=== PATIENT | male | born 1950 | race Caucasian/White ===

== ENCOUNTER 2023-12-24 18:23 | Emergency (ER) | payer MEDICARE, OTHER, SELFPAY ==
[2023-12-24 18:26] VITALS: BP 128/67
--- NOTE | 2023-12-24 20:58 | ED.GENMED ---
History of Present Illness
General
Chief Complaint: Musculo-Skeletal Complaint
Time Seen by Provider: 12/24/23 20:57
Travel History
Have you had any contact with someone who has COVID-19?: No
Do you have any symptoms of coronavirus? Fever > 100 degrees, chills, cough, shortness of breath, sore throat, loss of taste or smell, muscle aches, or headache?: No
History of Present Illness
History of Present Illness:
HPI: Patient presents with swelling and redness to the right knee that worsens when he kneels on it. He noted some increased swelling and was concerned. He also states his noticed some warmth. He is not a diabetic
EXAM:
GENERAL: Well appearing in no distress
HEENT: Moist oral mucosa
PSYCHIATRIC: Appropriate mental status, normal insight and judgement
EXTREMITIES: There is some very mild prepatellar soft tissue swelling consistent with prepatellar bursitis with mild warmth but no overwhelming signs of cellulitis
SKIN: As above
TIME OF INITIAL ENCOUNTER: 9 PM
NUMBER AND COMPLEXITY OF PROBLEMS ADDRESSED AT THE ENCOUNTER
� Chronic conditions affecting care: Asthma, smoker, lung cancer, high blood pressure,
� Acute Exacerbation and/or Progression of Chronic Illness: This is an acute problem
� Differential Diagnosis includes: Prepatellar bursitis, cellulitis, doubt septic joint
AMOUNT AND/OR COMPLEXITY OF DATA TO BE REVIEWED AND ANALYZED
� I performed an independent evaluation of and my interpretation is:
EKG:
CT:
X-rays: Chest x-ray shows moderate prepatellar soft tissue swelling suggestive of bursitis
Laboratory Studies:
Other:
� Review of other/old records: Basic blood work from 2019 is unremarkable
� Clinical information was obtained by an independent historian: None needed
� Prescriptions/Medications Considered but not given:
� Further testing considered but not performed: Considered lab work however highly doubt septic joint. I offered to aspirate the bursa however he declined.
RISK OF COMPLICATIONS AND/OR MORBIDITY OR MORTALITY OF PATIENT MANAGEMENT
� Social determinants of health affecting care: Lives at home
� Discussion with other providers:
� Escalation of care including admission/observation vs risk of discharge considered: I offered to aspirate the bursa however the patient declined. Will give short course of antibiotics in case there is a component of infection.
Of note the patient is no longer on Eliquis, recommended NSAIDs.
Past History
Past History
ED Past Medical History: HTN and Valvular disease
ED Past Surgical History: Cardiac and Orthopedic
Social History
Tobacco: Non-smoker
Alcohol: None
Drug: None
Phy Exam
Physical Exam
Physical Exam:
See HPI
Course
Orders/Labs/Results
Orders:
Orders
12/24/23 18:30
Knee, Right 4 or More Views [CR Knee- Right 4 Or More View*] Urgent
Comment:
Reason For Exam: swelling and redness
12/24/23 21:15
Ibuprofen [Motrin] 800 mg PO NOW STA
12/24/23 21:16
Cephalexin Monohydrate [Keflex] 500 mg PO NOW STA
Vital Signs
Initial and Last Documented VS:
Initial Vital Signs
Temp Pulse Resp BP Pulse Ox
98.7 F 80 20 128/67 97
12/24/23 18:26 12/24/23 18:26 12/24/23 18:26 12/24/23 18:26 12/24/23 18:26
Last Documented Vital Signs
Temp Pulse Resp BP Pulse Ox
98.7 F 80 20 128/67 97
12/24/23 18:26 12/24/23 18:26 12/24/23 18:26 12/24/23 18:26 12/24/23 18:26
*Critical Care Note
Total Time (30-74mins, 75-104mins- exclusive of procedures): Not Applicable
ED Attending Note
-
Portions of this chart may have been created with voice recognition software.� Occasional wrong word or��sound alike� substitutions may have occurred due to the inherent limitations of voice recognition software.
Discharge Plan
Departure
Patient Disposition: Home (Routine Discharge)
Date of Disposition: 12/24/23
Time of Disposition: 21:17
Patient with high blood pressure during this ER visit?: Yes
Discharge Problem:
Bursitis, prepatellar, right
Instructions: Prepatellar Bursitis (DC)
Prescriptions:
New
cephalexin 500 mg capsule
500 mg PO TID Qty: 21 0RF
No Action
Adderall:
8 mg PO DAILY
Eliquis:
5 mg PO BID
Minoxidil
1 applic topical BID
Patient Comments:
to scalp
Vitamin B12:
500 mcg PO DAILY
metoprolol succinate 12.5 MG tablet extended release 24 hr
12.5 mg PO HS 0RF
Referrals:
Ivan Ortega MD [Active] - Follow up in 2-3 days
Activity Restrictions/Additional Instructions:
Please follow-up primary care doctor or orthopedics. I recommend 3-4 [id number] ibuprofen (Motrin) every 8 hours with food for a few days. Return here if worse. Although I do not have a very strong suspicion for infection, I did send a
prescription for a course of antibiotics to your pharmacy.
Discharge Date and Time
Print Language: IRISH
[2023-12-24 21:08] VITALS: BP 124/7
[2023-12-24] MEDS: KEFLEX 500 MG PO (21:36)
[2023-12-24] MEDS: MOTRIN 800 MG PO (21:36)
== END 2023-12-24 21:44 | disposition home or self-care (01) ==
LOC: EMR 18:23
PROVIDERS: EMERGENCY PHYSICIAN Emergency Medicine; FAMILY PHYSICIAN Family Medicine
DX: M70.41 Prepatellar bursitis, right knee (principal); J45.909 Unspecified asthma, uncomplicated; I10 Essential (primary) hypertension; I38 Endocarditis, valve unspecified; F17.200 Nicotine dependence, unspecified, uncomplicated; Z85.118 Personal history of other malignant neoplasm of bronchus and lung
CPT/HCPCS: 99283; 73564

== ENCOUNTER 2024-12-30 16:06 | Outpatient (RCR) | payer MEDICARE, OTHER, SELFPAY ==
[2024-12-30 14:00] VITALS: BP 112/63
[2024-12-30] MEDS: TYLENOL 500 MG PO (15:30)
[2024-12-30] MEDS: ZOMETA 105 MG IV (15:30)
--- NOTE | 2024-12-30 16:29 | DOWNTIME ---
There was a [employer] Client [employer] Downtime on 12/30/2024 from 1230 to 12/30/2024 at 1550. Downtime documentation of patient's care, including medication administrations, has been reconciled in the electronic record per guidelines. Refer to the
patient's paper chart under the miscellaneous tab to see printed paper medication records and downtime forms.
[2024-12-30 17:30] LABS: ALT (SGPT) 24 U/L (0-50); AST (SGOT) 30 U/L (17-59); Albumin 4.2 g/dl (3.5-5.0); Alkaline Phosphatase 62 U/L (38-126); Blood Urea Nitrogen 20 mg/dl (9-20); Calcium 9.4 mg/dl (8.4-10.2); Carbon Dioxide 27 mmol/L (22-30); Chloride 107 mmol/L (98-107); Glucose 64 mg/dl (70-99); Sodium 139 mmol/L (135-145); Total Bilirubin 0.6 mg/dl (0.2-1.3); Total Protein 6.8 g/dl (6.3-8.2); eGFR > 60.00
== END 2024-12-31 11:14 | disposition home or self-care (01) ==
LOC: OID 16:06
PROVIDERS: ATTENDING PHYSICIAN Family Medicine
DX: C34.92 Malignant neoplasm of unspecified part of left bronchus or lung (principal); C79.51 Secondary malignant neoplasm of bone
CPT/HCPCS: 36415; 80053; 96365; J3489

== ENCOUNTER → 2025-05-29 11:49 | Outpatient (REF) | payer MEDICARE, OTHER, SELFPAY ==
[2025-05-29 13:04] LABS: ALT (SGPT) 25 U/L (0-50); AST (SGOT) 28 U/L (17-59); Albumin 4.2 g/dl (3.5-5.0); Alkaline Phosphatase 67 U/L (38-126); Blood Urea Nitrogen 17 mg/dl (9-20); Calcium 9.1 mg/dl (8.4-10.2); Carbon Dioxide 30 mmol/L (22-30); Chloride 104 mmol/L (98-107); Glucose 90 mg/dl (70-99); Potassium 4.3 mmol/L (3.5-5.1); Sodium 136 mmol/L (135-145); Total Protein 7.1 g/dl (6.3-8.2); eGFR > 60.00
== END ==
LOC: REG 11:49
PROVIDERS: ATTENDING PHYSICIAN Family Medicine
DX: C34.92 Malignant neoplasm of unspecified part of left bronchus or lung (principal)
CPT/HCPCS: 36415; 80053

== ENCOUNTER → 2025-06-01 14:31 | Outpatient (REF) | payer MEDICARE, OTHER, SELFPAY ==
[2025-06-01 15:39] LABS: Hematocrit 46.9 % (39.0-52.0); Hemoglobin 14.9 g/dL (13.0-18.0); Mean Corp Hgb Conc. 31.8 g/dL (33.0-37.0); Mean Corpuscular Volume 99.6 fL (80.0-94.0); Nucleated Red Blood Cells % 0 % (-); Platelet Count 212 10^3/uL (130-400); Red Cell Dist. Width 13.5 % (11.5-14.5)
== END ==
LOC: REG 14:31
PROVIDERS: ATTENDING PHYSICIAN Family Medicine
DX: Z85.820 Personal history of malignant melanoma of skin (principal); C79.51 Secondary malignant neoplasm of bone
CPT/HCPCS: 36415; 85025

== ENCOUNTER 2025-06-04 11:33 | Outpatient (RCR) | payer MEDICARE, OTHER, SELFPAY ==
[2025-06-04 11:43] VITALS: BP 113/70
[2025-06-04] MEDS: ZOMETA 105 MG IV (11:56)
== END 2025-06-04 23:59 | disposition home or self-care (01) ==
LOC: OID 11:33
PROVIDERS: ATTENDING PHYSICIAN Family Medicine
DX: C79.51 Secondary malignant neoplasm of bone (principal); C34.92 Malignant neoplasm of unspecified part of left bronchus or lung
CPT/HCPCS: 96365; J3489